=== PATIENT | female | born 1990 | race American Indian/Alaskan Native ===

== ENCOUNTER 2019-01-19 23:38 | Inpatient (IN) | payer MEDICAID ==
[2019-01-20] MEDS ORDERED: BUTORPHANOL 2 MG/1 ML INJ IV PRN (00:01)
[2019-01-20] MEDS ORDERED: TERBUTALINE 1 MG/1 ML INJ IVP PRN (00:01)
[2019-01-20] MEDS ORDERED: fentaNYL 100 MCG/2 ML INJ IV PRN (00:01)
[2019-01-20] MEDS ORDERED: AMPICILLIN/NS 2 GM/100 ML 2 GM/100 ML BAG IV ONE (00:01)
[2019-01-20] MEDS ORDERED: LIDOCAINE (2%) 20 MG/1 ML VIAL 20 ML MDV INFILTRATI ONE (00:01)
[2019-01-20] MEDS ORDERED: TERBUTALINE 1 MG/1 ML INJ SUB-Q PRN (00:01)
[2019-01-20] MEDS ORDERED: ePHEDrine SULFATE 50 MG/1 ML INJ IV PRN (00:01)
[2019-01-20] MEDS ORDERED: MINERAL OIL 30 ML ORAL LIQD PO PRN (00:01)
[2019-01-20] MEDS ORDERED: OXYTOCIN 20 UNIT/1000ML DRIP 20 UNITS/1,000 ML BAG IV SCH ×2 (01:00→02:00)
[2019-01-20] MEDS ORDERED: LACTATED RINGERS 1,000 ML IV SCH (01:00)
[2019-01-20 01:03] LABS: Hematocrit 27.2 % (30.3-42.9); Hemoglobin 9.3 gm/dl (10.1-14.3); Mean Corpuscular HGB Conc 34 % (30-34); Mean Corpuscular Volume 80 fl (79-97); Platelet Count 245 K/mm3 (140-440); Red Blood Count 3.41 M/mm3 (3.65-5.03)
[2019-01-20] MEDS ORDERED: ACETAMINOPHEN 325 MG TAB PO PRN (01:18)
[2019-01-20] MEDS ORDERED: PROMETHAZINE 25 MG TAB PO PRN (01:18)
[2019-01-20] MEDS ORDERED: MAGNESIUM HYDROXIDE (MOM) ORAL LIQD UDC PO PRN (01:18)
[2019-01-20] MEDS ORDERED: diphenhydrAMINE 25 MG CAP PO PRN (01:18)
[2019-01-20] MEDS ORDERED: ONDANSETRON 4 MG/2 ML INJ IV PRN (01:18)
[2019-01-20] MEDS ORDERED: PROMETHAZINE 25 MG RECT SUPP PR PRN (01:18)
[2019-01-20] MEDS ORDERED: WITCH HAZEL/ GLYCERIN PAD TP PRN (01:18)
[2019-01-20] MEDS ORDERED: BISACODYL 10 MG RECT SUPP PR PRN (01:18)
[2019-01-20] MEDS ORDERED: LANOLIN/ZINC/DIMETHICONE (LANSINOH) 7 GM TP PRN (01:18)
--- NOTE | 2019-01-20 01:22 | History and Physical Report ---
History of Present Illness Date of examination: 01/20/19 Date of admission: 01/20/19 00:00 Chief complaint: Labor History of present illness: Pt is a 28yo BF EDC 01/28/19; EGA 38 6/7 weeks presents to L&D complaining of RUC's q 3-4 mins. She received late care at [facility] [place] since 20 weeks and course has been unremarkable except for + Chlamydia and Trichomonas - treated multiple times. 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 Social history: no significant social history, single - Obstetrical History Expected Date of Delivery: 01/28/19 Actual Gestation: 38 Week(s) 6 Day(s) : 6 Medications and Allergies Allergies Allergy/AdvReac Type Severity Reaction Status Date / Time tramadol Allergy Shortness Verified 01/20/19 00:50 of Breath Home Medications Medication Instructions Recorded Confirmed Last Taken Type No Known Home Medications [No 08/11/15 08/11/15 Unknown History Reported Home Medications] Active Meds: Active Medications Acetaminophen (Tylenol) 650 mg PO Q4H PRN PRN Reason: Pain MILD(1-3)/Fever >100.5/MATTHEWS Acetaminophen/Hydrocodone Bitart ([place] 5/325) 2 each PO Q6H PRN PRN Reason: Pain, Moderate (4-6) Bisacodyl (Dulcolax) 10 mg NE BID PRN PRN Reason: Constipation Butorphanol Tartrate (Stadol) 2 mg IV Q2H PRN PRN Reason: Pain , Severe (7-10) Diphenhydramine HCl (Benadryl) 25 mg PO Q6H PRN PRN Reason: Itching Diphtheria/Tetanus/Acell Pertussis (Boostrix) 0.5 ml IM .ONCE ONE Stop: 01/21/19 01:19 Docusate Sodium (Colace) 100 mg PO BID ELISHA Ephedrine Sulfate (Ephedrine Sulfate) 10 mg IV Q2M PRN PRN Reason: Hypotension Fentanyl (Sublimaze) 100 mcg IV Q2H PRN PRN Reason: Labor Pain Ferrous Sulfate (Feosol) 325 mg PO BID ELISHA Oxytocin/Sodium Chloride (Pitocin/Ns 20 Unit/1000ml Drip) 20 units in 1,000 mls @ 125 mls/hr IV DIRECT ELISHA Lactated Ringer's (Lactated Ringers) 1,000 mls @ 125 mls/hr IV DIRECT ELISHA Ampicillin Sodium (Ampicillin/Ns 1 Gm/50 Ml) 1 gm in 50 mls @ 100 mls/hr IV Q 4HR ELISHA; Protocol Oxytocin/Sodium Chloride (Pitocin/Ns 20 Unit/1000ml Drip) 20 units in 1,000 mls @ 250 mls/hr IV DIRECT ELISHA Ibuprofen (Ibuprofen) 600 mg PO Q6H ELISHA Magnesium Hydroxide (Milk Of Magnesia) 30 ml PO HS PRN PRN Reason: Constipation Measles/Mumps/Rubella Vaccine Live (M-M-R Ii Vaccine) 0.5 ml SUB-Q .ONCE ONE Stop: 01/21/19 01:19 Mineral Oil (Mineral Oil) 30 ml PO QHS PRN PRN Reason: Constipation Multi-Ingredient Ointment (Lansinoh) 1 applic TP PRN PRN PRN Reason: Sore Nipples Multivitamins/Iron/Calcium ( Vitamin) 1 each PO QDAY ELISHA Ondansetron HCl (Zofran) 4 mg IV Q8H PRN PRN Reason: Nausea And Vomiting Promethazine HCl (Phenergan) 25 mg NE Q6H PRN PRN Reason: Nausea And Vomiting Promethazine HCl (Phenergan) 25 mg PO Q6H PRN PRN Reason: Nausea And Vomiting Sodium Chloride (Sodium Chloride Flush Syringe 10 Ml) 10 ml IV PRN NR Terbutaline Sulfate (Brethine) 0.25 mg SUB-Q ONCE PRN PRN Reason: Hyperstimulation/Hypertonicity Terbutaline Sulfate (Brethine) 0.25 mg IVP ONCE PRN PRN Reason: Hyperstimulation/Hypertonicity Witch Sarah/Glycerin (Tucks Pad) 1 each TP PRN PRN PRN Reason: Hemorrhoid/cleansing/soothing Review of Systems All systems: negative - Physical Exam Breasts: Positive: deferred Abdomen: Positive: normal appearance Genitourinary (Female): Positive: normal external genitalia Uterus: Positive: enlarged Extremities: Positive: normal - Obstetrical FHR: category 1 Uterine Contraction Monitor Mode: External Cervical Dilatation: 10 Cervical Effacement Percentage: 100 station: +3 Uterine Contraction Pattern: Regular Uterine Tone Measurement Phase: Contraction Uterine Contraction Intensity: Strong/Firm Results Result Diagrams: 01/20/19 00:20 Abnormal lab results 01/20/19 Range/Units 00:20 RBC 3.41 L (3.65-5.03) M/mm3 Hgb 9.3 L (10.1-14.3) gm/dl Hct 27.2 L (30.3-42.9) % MCH 27 L (28-32) pg All other labs normal. Assessment and Plan - Patient Problems (1) 38 weeks gestation of Onset Date: 01/20/19 Current Visit: Yes Status: Acute Plan to address problem: A: IUP @ 38 6/7 weeks in labor +GBS P: Admit to L&D for expectant vaginal delivery IV Ampicillin
--- NOTE | 2019-01-20 01:25 | Procedure Note ---
OB Delivery Note - Delivery Date of Delivery: 01/20/19 Surgeon: LAUREEN LAM Estimated blood loss: 200cc - Vaginal Delivery presentation: vertex Delivery position: OA Intrapartum events: meconium, precipitous labor- <3hr Delivery induction: none Delivery augmentation: rupture of membranes Delivery monitor: external FHT, external uterine Route of delivery: Delivery placenta: spontaneous Delivery cord: 3 umbilical vessels Episiotomy: none Delivery laceration: none Anesthesia: none Delivery comments: delivered OA and placed on Mom's chest for [id number] bonding and delayed cord clamping. - Infant A at 1 minute: 8 at 5 minutes: 9 Gender: Male (3571gm)
[2019-01-20] MEDS: IBUPROFEN 600 MG TAB PO SCH ×3 (01:44→19:02)
[2019-01-20 02:14] LABS: Amphetamine Screen,Urine PRESUMPTIVE NEGATIVE; Benzodiazepines Screen,Urine PRESUMPTIVE NEGATIVE; Cocaine Screen,Urine PRESUMPTIVE NEGATIVE; Methadone Screen,Urine PRESUMPTIVE NEGATIVE; Opiate Screen,Urine PRESUMPTIVE NEGATIVE
[2019-01-20 02:54] LABS: Cannabinoid Screen,Urine PRESUMPTIVE POSITIVE
[2019-01-20] MEDS: HYDROcodone/ACETAMINOPHEN 5-325 MG TAB PO PRN ×3 (03:42→22:34)
[2019-01-20] MEDS ORDERED: AMPICILLIN/NS 1 GM/50 ML 1 GM/50 ML BAG IV SCH (04:01)
[2019-01-20] MEDS: DOCUSATE SODIUM 100 MG CAP PO SCH ×2 (09:09→22:35)
[2019-01-20] MEDS: FERROUS SULFATE 325 MG TAB PO SCH ×2 (09:09→22:35)
[2019-01-20] MEDS: PRENATAL VIT27-FE FUMARATE-FOLIC ACID VIT TAB PO SCH (09:09)
[2019-01-20 13:59] LABS: Hematocrit 24.2 % (30.3-42.9); Hemoglobin 8.2 gm/dl (10.1-14.3)
[2019-01-21] MEDS ORDERED: MEASLES, MUMPS & RUBELLA 12,500 UNIT/0.5 ML VACCINE SUB-Q ONE (01:18)
[2019-01-21] MEDS ORDERED: TETANUS,DIPH,PERTUSS(ACELL) VACCINE 0.5 ML SYRINGE IM ONE (01:18)
[2019-01-21] MEDS: IBUPROFEN 600 MG TAB PO SCH ×4 (06:34→23:45)
[2019-01-21] MEDS: PRENATAL VIT27-FE FUMARATE-FOLIC ACID VIT TAB PO SCH (08:50)
[2019-01-21] MEDS: FERROUS SULFATE 325 MG TAB PO SCH ×2 (08:50→23:42)
[2019-01-21] MEDS: DOCUSATE SODIUM 100 MG CAP PO SCH ×2 (08:51→23:43)
--- NOTE | 2019-01-21 17:26 | Progress Note ---
Assessment and Plan A: day 1 S/P . Anemia secondary to and blood loss. P: Supplement with iron. Labs. Monitor BPs. Subjective - Subjective Date of service: 01/21/19 Principal diagnosis: day 1 S/P Interval history: day 1 S/P . Doing well. Patient reports she is voiding without difficulty, ambulating well, tolerating a regular diet without nausea or vomiting. Patient denies headache, chest pain, cough, shortness of breath, dizziness, abdominal pain, leg pain, or heavy vaginal bleeding. Patient reports: appetite normal, voiding normally, pain well controlled, flatus, ambulating normally, no dizzy ambulation, no nauseated [place]: doing well Objective - Vital Signs Latest vital signs: Vital Signs Temp Pulse Resp BP Pulse Ox 01/21/19 16:30 79 14 121/78 99 01/21/19 09:06 140/90 01/21/19 08:45 98.6 F 77 20 150/94 01/21/19 00:00 98.4 F 72 16 103/64 01/20/19 20:00 98.7 F 74 18 119/71 Intake and Output 01/21/19 01/21/19 01/21/19 07:59 15:59 23:59 Intake Total 120 Balance 120 Intake: Oral 120 Other: Total, Intake Amount 120 # Voids Void 1 - Exam Cardiovascular: Present: Regular rate, Normal S1, Normal S2, No murmurs Lungs: Present: Clear to auscultation Abdomen: Present: normal appearance, soft, normal bowel sounds. Absent: distention, tenderness, guarding, rigidity Uterus: Present: normal, firm, fundal height below umbilicus. Absent: bogginess, tenderness Extremities: Present: normal. Absent: tenderness, edema
[2019-01-21 18:52] LABS: Bacteria,Urine 1+ /HPF (Negative); Bilirubin,Urine NEG (Negative); Blood,Urine MOD (Negative); Color,Urine Straw (Yellow); Mucus,Urine FEW /HPF; Protein,Urine <15 mg/dL mg/dL (Negative); Urobilinogen,Urine < 2.0 mg/dL (<2.0)
[2019-01-21 19:36] LABS: Hematocrit 26.4 % (30.3-42.9); Hemoglobin 8.7 gm/dl (10.1-14.3); Mean Corpuscular HGB Conc 33 % (30-34); Mean Corpuscular Volume 81 fl (79-97); Platelet Count 237 K/mm3 (140-440); Red Blood Count 3.28 M/mm3 (3.65-5.03)
[2019-01-21 19:57] LABS: Uric Acid 5.3 mg/dL (3.5-7.6)
[2019-01-21 19:58] LABS: Alanine Aminotransferase 7 units/L (7-56); Albumin 3.3 g/dL (3.9-5); BUN/Creatinine Ratio 17; Blood Urea Nitrogen 10 mg/dL (7-17); Calcium 8.9 mg/dL (8.4-10.2); Hemolysis Index 28
[2019-01-21] MEDS: HYDROcodone/ACETAMINOPHEN 5-325 MG TAB PO PRN (21:30)
[2019-01-22] MEDS: HYDROcodone/ACETAMINOPHEN 5-325 MG TAB PO PRN ×2 (04:03→13:07)
[2019-01-22] MEDS: IBUPROFEN 600 MG TAB PO SCH (05:59)
[2019-01-22 08:53] VITALS: BP 130/77
[2019-01-22] MEDS: PRENATAL VIT27-FE FUMARATE-FOLIC ACID VIT TAB PO SCH (10:55)
[2019-01-22] MEDS: FERROUS SULFATE 325 MG TAB PO SCH (10:55)
[2019-01-22] MEDS: DOCUSATE SODIUM 100 MG CAP PO SCH (10:55)
--- NOTE | 2019-01-22 12:02 | Progress Note ---
Assessment and Plan A: day 2 S/P spontaneous vaginal delivery. Normal BPs. Anemia secondary to and blood loss. P: Discharge patient home today. discharge instructions and warning signs discussed with patient in detail. Advised patient to continue taking her vitamins and iron supplements at home. Advised patient to avoid intercourse, lifting and heavy housework. Advised patient to follow up with her primary OB provider in 2 days for BP check (advised pt. she will need to call their office tomorrow morning to obtain an appointment). BP warning signs discussed with patient. Patient voiced understanding of all instructions. Subjective - Subjective Date of service: 01/22/19 Principal diagnosis: day 2 S/P Interval history: day 2 S/P . Doing well. Patient reports she is voiding without difficulty, ambulating well, tolerating a regular diet without nausea or vomiting. Patient reports a small amount of lochia and no large clots. Patient denies headache, chest pain, cough, shortness of breath, dizziness, abdominal pain, leg pain, or heavy vaginal bleeding. Patient desires discharge to home today. Patient reports: appetite normal, voiding normally, pain well controlled, flatus, ambulating normally, no dizzy ambulation, no nauseated : doing well, bottle feeding Objective - Vital Signs Latest vital signs: Vital Signs Temp Pulse Resp BP BP Pulse Ox 01/22/19 07:45 97.8 F 63 16 130/77 100 01/22/19 01:08 98.1 F 64 18 138/81 100 01/21/19 16:30 79 14 121/78 99 Intake and Output 01/21/19 01/22/19 01/22/19 23:59 07:59 15:59 Intake Total 240 420 Balance 240 420 Intake: Oral 240 Intake, Free Water 420 Other: Total, Intake Amount 240 # Voids Void 1 1 - Exam Cardiovascular: Present: Regular rate, Normal S1, Normal S2, No murmurs Lungs: Present: Clear to auscultation Abdomen: Present: normal appearance, soft, normal bowel sounds. Absent: distention, tenderness, guarding, rigidity Uterus: Present: normal, firm, fundal height below umbilicus. Absent: bogginess, tenderness Extremities: Present: normal. Absent: tenderness, edema - Labs Labs: Abnormal lab results 01/21/19 01/21/19 01/21/19 Range/Units 19:14 19:14 19:14 RBC 3.28 L (3.65-5.03) M/mm3 Hgb 8.7 L (10.1-14.3) gm/dl Hct 26.4 L (30.3-42.9) % MCH 27 L (28-32) pg Sodium 135 L (137-145) mmol/L Carbon Dioxide 21 L (22-30) mmol/L Creatinine 0.6 L (0.7-1.2) mg/dL Lactate Dehydrogenase 181 H (91-180) units/L Albumin 3.3 L (3.9-5) g/dL Urine WBC (Auto) (0.0-6.0) /HPF 01/21/19 Range/Units Unknown RBC (3.65-5.03) M/mm3 Hgb (10.1-14.3) gm/dl Hct (30.3-42.9) % MCH (28-32) pg Sodium (137-145) mmol/L Carbon Dioxide (22-30) mmol/L Creatinine (0.7-1.2) mg/dL Lactate Dehydrogenase (91-180) units/L Albumin (3.9-5) g/dL Urine WBC (Auto) 10.0 H (0.0-6.0) /HPF
--- NOTE | 2019-01-22 12:08 | Discharge Summary ---
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 Primary care physician: ESTELA BONNER MD Hospitalization Reason for admission: active labor Delivery: Episiotomy: none Laceration: none Other procedures: none complications: none baby: male Pertinent studies: Labs Hospital course: Stable hospital course Condition at discharge: Good Disposition: DC-01 TO HOME OR SELFCARE - Discharge Diagnoses (1) Term delivered Status: Acute (2) Anemia due to blood loss Status: Acute Plan - Provider Discharge Summary Activity: routine, no sex for 6 weeks, no heavy lifting 4 weeks, no strenuous exercise Diet: routine Instructions: routine Additional instructions: Continue taking your vitamins and iron supplements at home. Call your doctor immediately for: * Fever > 100.5 * Heavy vaginal bleeding ( >1 pad per hour) * Severe persistent headache * Shortness of breath * Reddened, hot, painful area to leg or breast - Follow up plan Follow up: ESTELA BONNER MD [Primary Care Provider] - 01/24/19
== END 2019-01-22 15:44 | disposition home or self-care (01) | DRG 775 ==
LOC: TRG 23:38 → LD 23:56 → OBSVTOIN 01-20 → TRG 01-20 → OB 01-20 03:13
PROVIDERS: ADMIT Obstetrics & Gynecology; ATTEND Obstetrics & Gynecology
PROC: 10E0XZZ Delivery of Products of Conception, External Approach (ICD-10-PCS; principal; 2019-01-20)
PROC: 3E0234Z Introduction of Serum, Toxoid and Vaccine into Muscle, Percutaneous Approach (ICD-10-PCS; 2019-01-21)
DX: O99.824 Streptococcus B carrier state complicating childbirth (principal); Z3A.38 38 weeks gestation of pregnancy; O77.0 Labor and delivery complicated by meconium in amniotic fluid; O62.3 Precipitate labor; O90.81 Anemia of the puerperium; Z37.0 Single live birth; Z23 Encounter for immunization; Z88.6 Allergy status to analgesic agent; D62 Acute posthemorrhagic anemia
CPT/HCPCS: 36415; 80053; 80307; 81001; 83615; 84550; 85014; 85018; 85027; 86850; 86900; 86901; 87086; G0378; J0290; J0595; J2590; J3010; J7120